=== PATIENT | male | born 1985 | race Caucasian/White ===

== ENCOUNTER 2017-12-15 19:51 | Emergency (ER) | payer BC ==
[~2017-12-15] VITALS: Ht 193 cm; Wt 99.8 kg
[2017-12-15 20:09] VITALS: Ht 193 cm; Wt 99.8 kg
[2017-12-15 22:13] VITALS: BP 144/95
== END 2017-12-15 22:13 | disposition home or self-care (01) ==
LOC: D.ER 19:51
DX: F41.1 Generalized anxiety disorder (principal); F43.0 Acute stress reaction; V43.52XA Car driver injured in collision with other type car in traffic accident, initial encounter; Y93.89 Activity, other specified; Y92.410 Unspecified street and highway as the place of occurrence of the external cause